=== PATIENT | female | born 1960 | race Caucasian/White ===

== ENCOUNTER → 2017-03-09 | Outpatient (CLI) | payer BC ==
[~2017-03-09] MED LIST: ALPR.25T PO; ALPR0.5T PO; CITA40TA19 PO; HYDR-3754 PO; HYDR-3881 PO; HYDR-87 PO; MULT-351 PO; OMEP20CA6 PO; ONDAN4ODT PO; Tramadol Hcl PO
[2017-03-09 07:53] LABS: BASOPHILS % (AUTO) 1 % (0-2); EOSINOPHILS # (AUTO) 0.2 10^3uL; EOSINOPHILS % (AUTO) 2 % (0-4); LYMPHOCYTES # (AUTO) 2.6 X10^3; MEAN CORPUSCULAR HEMOGLOBIN 29.9 PG (26.0-34.0); MEAN CORPUSCULAR HGB CONC 33.7 g/dL (31.0-37.0); MEAN CORPUSCULAR VOLUME 89 FL (80-100); MEAN PLATELET VOLUME 11.2 FL (6.0-9.5); MONOCYTES # (AUTO) 0.6 X10^3; MONOCYTES % (AUTO) 8 % (3-11); NEUTROPHILS # (AUTO) 4.2 X10^3; NEUTROPHILS % (AUTO) 56 % (51-67); PLATELET COUNT 246 10^3uL (150-450); WHITE BLOOD COUNT 7.56 10^3uL (4.0-11.0)
[2017-03-09 08:02] LABS: ALBUMIN 4.5 g/dL (3.4-5.0); ALKALINE PHOSPHATASE 70 U/L (38-126); ANION GAP 16.1 MEQ/L (3-15); BUN/CREATININE RATIO 27 (10-20); CALCULATED IONIZED CALCIUM 3.9 mg/dL (3.8-4.6)
== END ==
LOC: LAB 07:09
PROVIDERS: ATTEND Family Medicine
DX: Z00.00 Encounter for general adult medical examination without abnormal findings (principal)
CPT/HCPCS: 36415; 80053; 80061; 82728; 83036; 84436; 84443; 85025; 85652